=== PATIENT | male | born 1965 | race Caucasian/White ===

== ENCOUNTER 2016-05-31 20:26 | Inpatient (IN) | payer OTHER ==
[~2016-05-31] VITALS: Ht 167.6 cm; Wt 119.7 kg
--- NOTE | ~2016-05-31 | ECH ---
Transthoracic Echocardiography Report (TTE) Demographics Patient Name JONATAN LEE Date of Study 06/01/2016 Patient Number [id number] Visit Number [id number] Date of 1965 Room Number 428 Accession Number [id number] Gender Male Age 51 year(s) Referring Odilon Stewartis Ambrocio Legal Billing Specialist Brooke Marr [facility] Physician Physician Interpreting Vivian Rubio Broker In Charge Physician Supervising Ordering Physician Vivian Rubio MD/P Nurse Stress Cutting Table Operator First Conclusions Contractility Score Summary Normal Left Ventricular contractility was noted. Summary Technically fair exam. The estimated left ventricular ejection fraction is 55-60%. Mild left ventricular hypertrophy. The left atrium is mildly dilated by LA volume index measurement. The aortic valve is moderately sclerotic trileaflet with no significant gradient. There is no aortic regurgitation by color Doppler. No other significant valvular abnormalities. Recommendation The patient will be given the results of this study by the physician who ordered the exam. Procedure Type of Study TTE procedure:Echo Complete SF. Procedure Date Date: 06/01/2016 Start: 01:24 PM Technical Quality: Fair due to body habitus. Indications:Chest pain. Appropriate Use Criteria: 9 Height: 66 inches Weight: 263 pounds BSA: 2.25 m Rhythm: Within normal limits HR: 61 bpm BP: 146/87 mmHg Allergies - No known allergies. M-Mode/2D Measurements LV Diastolic Dimension: 5.05 cm LV Systolic Dimension: 3.84 cm LV Septum Diastolic: 1.33 cm LV PW Diastolic: 1.1 cm AO Root Dimension: 3.03 cm Cardiac Output: 5.78 l/min LA Dimension: 4.45 cm Cardiac Index: 2.57 l/min*m RV Diastolic Dimension: 3.66 cm LA volume index: 37 ml/m LVOT: 2.01 cm LVOT VTI: 29.9 cm RV Base: 4.9 cm LV Stroke volume: 94.83 ml RV Mid: 3.3 cm LV Stroke volume index: 42.15 ml/m RV Length: 7.6 cm TAPSE: 2.6 cm TDI-S': 13 cm/s Doppler Measurements AV Peak Velocity: 1.8 m/s MV Peak E-Wave: 0.84 m/s AV Peak Gradient: 12.96 mmHg MV Peak A-Wave: 0.56 m/s AV Mean Gradient: 6.61 mmHg MV E/A Ratio: 1.5 LVOT Peak Velocity: 1.48 m/s MV P1/2t: 47.5 msec AV Area (Continuity):2.89 cm MV Deceleration Time: 153.3 msec TR Velocity:2.48 m/s MV Area (PHT): 4.63 cm TR Gradient:24.54 mmHg PV Peak Velocity: 1.07 m/s Estimated RAP:5 mmHg PV Peak Gradient: 4.57 mmHg Estimated RVSP: 30 mmHg Estimated PASP: 29.54 mmHg RA Area: 17.17 cm Findings Left Ventricle The left ventricle is normal in size . Mild left ventricular hypertrophy. Diastolic assessment reveals normal relaxation. Right Ventricle Normal right ventricle structure and function. Left Atrium The left atrium is mildly dilated by LA volume index measurement. Right Atrium Normal right atrial size. Mitral Valve Normal mitral valve structure and function. Mild mitral regurgitation by color Doppler. Aortic Valve The aortic valve is moderately sclerotic trileaflet with a mean gradient 7mmHg. There is no aortic regurgitation by color Doppler. Tricuspid Valve Normal tricuspid valve structure and function. Mild tricuspid regurgitation by color Doppler. Pulmonic Valve Normal pulmonic valve structure and function. Pericardial Effusion No evidence of pericardial effusion. Miscellaneous Visualized portions of the aortic root and ascending aorta appear normal in size. Pleural Effusion No evidence of pleural effusion. Contractility Score LV regional wall motion:(0-Non visualized 1-Normal 2-Hypokinesis 3-Akinesis 4-Dyskinesis 5-Aneurysm) Signature
[~2016-05-31 20:26] MED LIST: AMARYL DPS4 MG PO; GLUCOPHAGE-DPS500 MG PO; HUMALOG100 UNIT/1 SQ; LANTUS100 UNITS/ SQ; LIPITOR DPS20 MG PO; NEURONTIN DPS300 MG PO; ZESTRIL DPS5 MG PO; ZOLOFT DPS50 MG PO
--- NOTE | 2016-06-01 06:13 | ER ---
ADMIT: 05/31/2016 RM/LOC: 428 [facility] MR#: [id number] [address] [address] JONATAN LEE [address] [address] Emergency Room Report SEX: M AGE: 51 : 1965 DATE: 05/31/2016 HISTORY OF PRESENT ILLNESS: The patient is a 51-year-old male with a past medical history of diabetes for the last 6 years, who is compliant with his medication, came to the ER with chief complaint of right and anterior chest pain, which started 2 hours ago while the patient was getting ready to go to work. Per patient, chest is mildly pleuritic and increases mildly with palpation also is sharp and there is no radiation. The patient denies any diaphoresis. The patient states once in a while he had similar pain, and on March 21, 2015, he has been seen and admitted for followup for elevated cardiac enzymes for the same problem and same pain. The patient complains of mild shortness of breath, which is intermittent, and the patient states whenever he is anxious, the pain also increases. PHYSICAL EXAMINATION: VITAL SIGNS: The patient has O2 saturation of 94% on room air. He is not tachypneic, blood pressure is normal in the 130s, systolic. The patient is mildly tachycardic to 103. GENERAL: Patient was in mild distress, sitting in bed, answering the question, is not lethargic. HEAD AND NECK: Normal, bilateral equal breath sounds without any extra sounds. HEART: Normal S1, S2. No bruit on the neck. No murmur on the neck or on the chest. Pulses are bilaterally normal and equal. ABDOMEN: Soft, nontender. Abdomen is just mildly distended. SKIN: Normal. LOWER EXTREMITIES: There is no swelling or tenderness. LABORATORY DATA: EKG was sinus tachycardia with a rate of 103. There is no ST or T changes or Q waves or arrhythmia. Chest x-ray was noncontributory, D- dimer was normal at 0.35. Troponin I was mildly elevated at 0.041. Glucose was 388 with creatinine of 1.2. Hemoglobin of 15.5, and white BC of 10.3. Previous charts were also reviewed, and in March 2015, the patient has been admitted for elevated cardiac enzymes, but further followups, angiography, stress test was not done and the patient did not follow it up. Internal Medicine was consulted and patient was admitted for further followups and treatment of chest pain, rule out acute coronary syndrome. Luis Alberto Hammond MD/ antwan JOB #: [id number] CC: Sergei Donald MD, Attending Physician Sergei Donald MD, Family Physician
--- NOTE | 2016-06-01 21:57 | DS ---
ADMIT: 05/31/2016 RM/LOC: 428 [facility] MR#: [id number] [address] [facility] [address] [place] [id number] ROSAJ[address]AN [address] [place] [id number] Discharge Summary SEX: M AGE: 51 : 1965 ADMISSION DATE: 05/31/2016 DISCHARGE DATE: 06/01/2016 CONSULTATIONS: Ramiro Park MD, with Cardiology. FINAL DIAGNOSES: 1. Chest pain. 2. Elevated troponin. 3. History of normal cath. 4. Diabetes uncontrolled. 5. Hyperlipidemia. REASON FOR ADMISSION: See dictated H and P, but briefly, this is a 51-year- old gentleman with uncontrolled diabetes, who presented with chest pain. HOSPITAL COURSE: The patient was admitted. Chest pain. Initial cardiac enzymes with mildly elevated troponin. He was placed on IV heparin per [facility] protocol. Given aspirin. Blood pressure was mildly low. He was followed for trending out his enzymes. His CRP was mildly elevated at 0.5 and sedimentation rate of 25 and felt subsequent cardiac enzymes were normal. CK never did elevate. Echocardiogram was done which was significant for a moderately sclerotic trileaflet aortic valve, mildly dilated left atrium, and mildly hypertrophied left ventricle, EF was 55-60%. After evaluation with Cardiology, they felt like this was not related to a cardiac event. He has been able to exercise recently without any limitations, so I agree with them, and apparently after he was admitted and it was understood that he did not get evaluation for his last problem a year ago, then it was revealed that he did. He had a heart cath and it was normal, so this makes it unlikely that he would have new coronary disease in this short amount of time. So patient was set up to be discharged to home. He will maintain on his same home medication regimen. Sergei Donald MD/ yusuf JOB #: [id number] CC: Sergei Donald MD, Attending Physician Sergei Donald MD, Family Physician
--- NOTE | 2016-06-02 08:17 | HP ---
ADMIT: 05/31/2016 RM/LOC: 428 [facility] MR#: [id number] 2620 [facility] [address] [place], [place] [address] JONATAN LEE [address] [place] [address] History and Physical SEX: M AGE: 51 : 1965 DATE OF SERVICE: CHIEF COMPLAINT: Chest pain. HISTORY OF PRESENT ILLNESS: This is a 51-year-old gentleman. He has a past medical history of diabetes for 6 years and history of chest pain a year ago. He presented because he had right-sided anterior chest pain, started 2 hours prior to arrival. He was getting ready to work. It was mildly pleuritic, increases with palpation and was kind of sharp. He thought it radiating to his right shoulder, worse when he moves around. He had no diaphoresis. He had some increased shortness of breath. He had a similar pain just over a year ago, was admitted with elevated cardiac enzymes, with the exact same pain. I have been told to never got this evaluated again. This pain does worsen with some of his recent anxiety. PAST MEDICAL HISTORY: Includes diabetes, hyperlipidemia, last A1c was greater than 10. ALLERGIES: NO KNOWN ALLERGIES. SOCIAL HISTORY: He is a retired teacher, works in a microbiology lab. Nonsmoker and nondrinker. FAMILY HISTORY: Reviewed but noncontributory. REVIEW OF SYSTEMS: Other complete review of systems obtained and negative except as above. PHYSICAL EXAMINATION: VITAL SIGNS: Temperature 97.8, pulse 73, respirations 16, blood pressure 147/87, ox saturation 96% on room air. GENERAL: This is a well-appearing, 51-year-old gentleman. He is overweight but in no apparent distress. HEENT: Pupils equal, round, and reactive to light and accommodation. His extraocular muscles are intact. His throat is clear. NECK: Supple. He an an enlarged thyroid. Carotids are normal. HEART: Regular rate and rhythm but distant. LUNGS: Diminished, but clear bilaterally. ABDOMEN: Protuberant and soft without any tenderness. Normal bowel sounds. EXTREMITIES: Lower extremities have 1+ lower extremity edema bilaterally, can move all extremities equally bilaterally. LABORATORY AND X-RAY DATA: CBC with white count of 10.3, hemoglobin 15.5, ADMIT: 05/31/2016 RM/LOC: 428 [facility] MR#: [id number] [address] [address] JONATAN LEE [address] [place] [address] History and Physical SEX: M AGE: 51 : 1965 platelets of 156. INR and PTT normal. D-dimer is 0.35. CMP; sodium 139, potassium 4.3, chloride 104, bicarb 27, BUN 18, glucose is 388 on presentation. Creatinine is 1.2. Troponin 0.041 was mildly elevated on our scale. ASSESSMENT AND PLAN: He has been admitted to the hospital. EKG was okay. D- dimer is normal. Troponin is mildly elevated. His glucose is not controlled. I will have Cardiology see him because of elevated enzymes and followup and have Cardiology see if they want to do any further evaluation for this current time. I think this is more atypical pain but we will watch closely. We will control his blood sugar with sliding scale insulin and his regular home medicines. Sergei Donald MD/ lopezl JOB #: [id number] CC: Sergei Donald MD, Attending Physician Sergei Donald MD, Family Physician
[2016-06-02] MEDS ORDERED: MOBIC15 MG PO (16:35)
[2016-06-02] MEDS ORDERED: HUMALOG100 UNIT/3 SQ (16:36)
[2016-06-02] MEDS ORDERED: ASPIR-LOW81 MG PO (16:37)
[2016-06-02] MEDS ORDERED: DAILY MULTIPLE1 EAC1 PO (16:37)
[2016-06-02] MEDS ORDERED: FISH OIL 1,2001 EACH PO (16:37)
[2016-06-02] MEDS ORDERED: ULTRAM DPS50 MG PO (16:37)
--- NOTE | 2016-06-11 14:49 | CO ---
ADMIT: 05/31/2016 RM/LOC: 428 [facility] MR#: [id number] [address] [address] JONATAN LEE [address] [place] [address] Consultation SEX: M AGE: 51 : 1965 DATE OF CONSULTATION: 06/01/2016 ATTENDING PHYSICIAN: Sergei Donald CONSULTING PHYSICIAN: Ramiro Park MD REASON FOR CONSULTATION: Chest pain. HISTORY OF PRESENT ILLNESS: The patient is a pleasant 51-year-old, male, well known to [facility]. He actually has a history of normal heart catheterization in 2015. He also had an echocardiogram at that time, which showed preserved ejection fraction. He was dismissed from our clinic after that followup and told to come back on a p.r.n. basis. He has been regularly following with his primary care for treatment of his other comorbidities. Unfortunately, he developed some chest discomfort yesterday evening prior to going into work. He states that this was a right-sided chest discomfort that radiated into his shoulder. His blood sugars have also been high and his meter was reading too high. He felt sluggish and had some sweats and headache. As his blood sugars would not come down and the discomfort seemed to worsen and he got short of breath with it, he decided to come into the emergency room. He describes this as a heaviness on his chest. It is the same discomfort he had prior to his heart catheterization in March 2015. REVIEW OF SYSTEMS: GENERAL: Denies fatigue, fever, chills, sweats, rash, or weight loss. EYES: Denies double vision, blurred vision, cataracts, or glaucoma. ENT: Denies hearing loss or problems with nose, mouth or throat. PULMONARY: He does have obstructive sleep apnea and wears a CPAP. He has a cough which is nonproductive. GASTROINTESTINAL: He occasionally has diarrhea which is not new for him. GENITOURINARY: Denies dysuria, hematuria, nocturia, urinary tract infection, or kidney stones. Denies history of renal insufficiency or failure. MUSCULOSKELETAL: Denies history of arthritis or gout. Denies muscle or joint pains. ENDOCRINE: Denies history of thyroid dysfunction or diabetes. HEMATOLOGIC: Denies history of anemia, easy bruising, or cancer. NEUROLOGIC: Denies chronic headaches, dizziness, syncope, stroke, seizures or numbness or tingling. PSYCHIATRIC: Denies history of mental illness or feelings of depression. FAMILY HISTORY: Noncontributory. SOCIAL HISTORY: He does work. He is employed as a microbiologist. He does not smoke. PAST MEDICAL HISTORY: Positive for diabetes and hypertension. He also has hyperlipidemia. PHYSICAL EXAMINATION: VITAL SIGNS: Per Dr. Park, temp 97.8, pulse 73, ADMIT: 05/31/2016 RM/LOC: 428 [facility] MR#: [id number] [address] [place] [id number] JONATAN LEE [address] [place] [address] Consultation SEX: M AGE: 51 : 1965 respirations 16, blood pressure 147/87, O2 saturation 96%. SKIN: [place], warm and dry. EYES: Sclerae clear. No xanthelasmas. ENT: Oral mucosa is pink and moist. No jugular venous distention or carotid bruits. CHEST: Respirations are even and unlabored. Lungs are clear to auscultation. HEART: He has 2/6 systolic ejection murmur. ABDOMEN: Obese. MUSCULOSKELETAL: Gait is normal. EXTREMITIES: Peripheral pulses palpable. No clubbing, cyanosis or edema. PSYCHIATRIC: Alert and oriented. Mood and affect are appropriate. DIAGNOSTICS: His troponin was mildly elevated at 0.041. At the next one is come down to normal. EKG does not show any acute ST-T wave changes. ASSESSMENT: 1. Atypical chest pain. 2. Diabetes. 3. Hypertension. 4. Hyperlipidemia. PLAN: Per Dr. Park, his chest pain is atypical. I do not see any evidence of acute coronary syndrome. I would recommend checking an echocardiogram to assess left ventricular function and to assess for any valvular abnormalities, also check a D-dimer and start a PPI. I do not plan for any repeat ischemic evaluation at this time unless his echocardiogram is abnormal. We will continue to monitor his symptoms and diagnostics, and amend our plan accordingly. Thank you for allowing us to participate in the care of this patient. ALVERTO Vallejo / Ramiro Park MD / antwan JOB #: [id number] CC: Sergei Donald, Attending Physician Sergei Donald, Family Physician
== END 2016-06-01 18:57 | disposition home or self-care (01) | DRG 313 ==
LOC: ER 20:26 → 4PCU 22:12
PROVIDERS: ADMIT Internal Medicine
DX: R07.9 Chest pain, unspecified (principal); E11.65 Type 2 diabetes mellitus with hyperglycemia; I10 Essential (primary) hypertension; F41.9 Anxiety disorder, unspecified; E78.5 Hyperlipidemia, unspecified; G47.33 Obstructive sleep apnea (adult) (pediatric); R79.89 Other specified abnormal findings of blood chemistry